=== PATIENT | female | born 1965 | race American Indian/Alaskan Native ===

== ENCOUNTER 2021-04-29 13:01 | Emergency (ER) | payer SELFPAY ==
[2021-04-29 13:42] VITALS: BP 124/78
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
== END 2021-04-29 14:28 | disposition home or self-care (01) ==
LOC: ED 13:01
DX: S16.1XXA Strain of muscle, fascia and tendon at neck level, initial encounter (principal); V49.59XA Passenger injured in collision with other motor vehicles in traffic accident, initial encounter; Y93.89 Activity, other specified; Y92.89 Other specified places as the place of occurrence of the external cause; Y99.8 Other external cause status
CPT/HCPCS: 99282

== ENCOUNTER 2021-05-22 11:40 | Emergency (ER) | payer SELFPAY ==
[2021-05-22] MEDS ORDERED: BUTALB/ACETAMINOPHEN/CAFFEINE TAB PO STA (14:41)
[2021-05-22] MEDS ORDERED: KETOROLAC 60 MG/2 ML INJ IM ONE (14:41)
[2021-05-22] MEDS ORDERED: dexAMETHasone 4 MG/ML VIAL IM STA (14:41)
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
[2021-05-22 16:28] VITALS: BP 140/78
== END 2021-05-22 16:29 | disposition home or self-care (01) ==
LOC: ED 11:40
DX: M54.2 Cervicalgia (principal); R51.9 Headache, unspecified; V49.59XA Passenger injured in collision with other motor vehicles in traffic accident, initial encounter; Y93.89 Activity, other specified; Y92.89 Other specified places as the place of occurrence of the external cause; Y99.8 Other external cause status
CPT/HCPCS: 96372; 99282; J1100; J1885